=== PATIENT | male | born 1950 | race Caucasian/White ===

== ENCOUNTER 2017-12-07 21:07 | Inpatient (IN) | payer MEDICARE, BC ==
[2017-12-07 21:39] LABS: Hemoglobin 15.4 g/dL (14.0-18.0); Mean Corpuscular HGB CONC 34.9 g/dL (32.0-36.0); Mean Corpuscular Hemoglobin 33.6 pg (27.0-31.0); Mean Corpuscular Volume 96.1 fl (80.0-94.0); RBC Distribution Width 13.2 % (11.5-14.5); Red Blood Cell (RBC) Count 4.59 mill/uL (4.70-6.10); White Blood Cell (WBC) Count 10.2 thou/uL (4.8-10.8)
[2017-12-07 21:54] LABS: Band 13 % (5-11); Lymphocytes 5 % (21-51); MDiff Complete? YES; Mean Platelet Volume 9.6 fL (7.4-10.4); Monocytes 1 % (0-10); Neutrophil 80 % (42-75); PLT Morphology Comment Appears Decreased; Platelet Count 87 thou/uL (130-400); RBC Morphology Normal; Reactive Lymphocytes 1 % (0-10); Vacuoles SLIGHT
[2017-12-07] MEDS ORDERED: MEROPENEM 1 GM/50 ML 1 GM in Premix Bag 1 BAG IVPB SCH (22:00)
[2017-12-07 22:13] LABS: ALT (SGPT) 72 U/L (8-55); AST (SGOT) 62 U/L (5-34); Albumin 3.6 g/dL (3.4-4.8); Alkaline Phosphatase 279 U/L (40-150); Anion Gap 15 mmol/L (10-20); BUN (Urea Nitrogen) 25 mg/dL (8.4-25.7); Bilirubin, Total 1.4 mg/dL (0.2-1.2); Calc. Creatinine Clearance 0 mL/min (70-130); Calcium 9.2 mg/dL (7.8-10.44); Carbon Dioxide 21 mmol/L (23-31); Chloride 100 mmol/L (98-107); Estimated GFR-MDRD 49; Globulin 2.9 g/dL (2.4-3.5); Glucose 108 mg/dL (80-115); Potassium 3.1 mmol/L (3.5-5.1); Protein, Total 6.5 g/dL (5.8-8.1); Sodium 133 mmol/L (136-145)
[2017-12-08] MEDS ORDERED: Ondansetron HCl/PF 4 MG/2 ML Vial IVP PRN ×2 (00:36→06:46)
[2017-12-08] MEDS ORDERED: Acetaminophen 325 MG TAB PO PRN ×2 (00:36→06:46)
[2017-12-08] MEDS ORDERED: Ondansetron ODT 4 MG TAB SL PRN (00:36)
[2017-12-08] MEDS ORDERED: Sodium Chloride 0.9% 1,000 ML IV SCH (00:36)
[2017-12-08 01:22] LABS: Lactic Acid 1.6 mmol/L (0.5-2.2)
[2017-12-08 02:00] VITALS: BMI 34.3
[2017-12-08] MEDS: Sodium Chloride 0.9% 1,000 ML IV SCH ×2 (02:32→15:26)
[2017-12-08] MEDS ORDERED: Ondansetron ODT 4 MG TAB PO PRN (06:46)
[2017-12-08] MEDS ORDERED: Calcium Carbonate 500 MG ChewTAB PO PRN (06:46)
[2017-12-08] MEDS ORDERED: HYDROcodone/Acetaminophen 10/325 mg Tablet PO PRN (06:50)
[2017-12-08] MEDS ORDERED: ALPRAZolam 0.25 MG TAB PO PRN (06:52)
[2017-12-08] MEDS ORDERED: [UNRECOGNIZED DRUG - REMARK] IVPB PRN (06:54)
--- NOTE | 2017-12-08 07:01 | HP ---
PRIMARY CARE PHYSICIAN: Shante Sams M.D. CHIEF COMPLAINT: Fever with abdominal discomfort of one week duration. HISTORY OF PRESENT ILLNESS: The patient is a 67-year-old male with liver abscess earlier this year, treated with IV antibiotics, presented to the emergency room with fever, chills as well as abdominal discomfort. The patient had cholecystectomy 2 to 3 years ago that was complicated with bile duct injury. He was transferred to [facility] for bile duct repair. In August of this year, he was admitted at [facility] with liver abscess. He completed 4 weeks of IV antibiotics and was p laced on oral antibiotics. Over the last 2 months, he is doing well without any antibiotics. He is unable to provide the names of the antibiotic which he was on. Over the last 6-7 days, the patient h as on and off fever along with chills. His temperature has been running intermittently around 102. He was seen at Dr. Narvaez' office yesterday. A CT scan of the abdomen was done that showed liver absc ess. Dr. Narvaez recommended starting oral antibiotics. He was on his way from pharmacy to his home w hen he developed fever of 104 degrees along with fever and chills, he then presented to the emergency room. In the emergency room, initial vital signs showed temperature 100.2, respirations 25, pulse of 101, b lood pressure of 105/64 with O2 saturation 95% on room air. He received meropenem with IV fluids per Infectious Disease recommendation. Blood cultures and urine cultures were done. PAST MEDICAL HISTORY: 1. Liver abscess in August of this year. He was admitted at [facility]. PICC line was placed. 2. Paroxysmal atrial fibrillation. 3. Hyperlipidemia. 4. Hypertension 5. Gastroesophageal reflux disease. 6. Anxiety. PAST SURGICAL HISTORY: 1. Cholecystectomy with complications as discussed above. 2. Bilateral knee surgery. ALLERGIES: The patient is allergic to SULFA. CURRENT HOME MEDICATIONS: Allopurinol 300 mg daily, Xanax 1 mg at bedtime, amiodarone 200 mg daily, Augmentin 1 tablet b.i.d., atenolol 50 mg daily, Lipitor 40 mg at bedtime, ciprofloxacin 500 mg b.i.d ., [place] as needed, meloxicam 15 mg daily, omeprazole 40 mg daily, potassium gluconate 550 mg daily, valsartan and hydrochlorothiazide 320/25 daily. SOCIAL HISTORY: The patient currently lives at home with his family. He currently works in [employer]. He continues to smoke on and off. No drug use. Denies any alcohol abuse. FAMILY HISTORY: Negative for premature coronary artery disease. REVIEW OF SYSTEMS: The following complete review of systems was negative, unless otherwise mentioned in the HPI or below: Constitutional: Weight loss or gain, ability to conduct usual activities. Sk in: Rash, itching. Eyes: Double vision, pain. ENT/Mouth: Nose bleeding, neck stiffness, pain, ten derness. Cardiovascular: Palpitations, dyspnea on exertion, orthopnea. Respiratory: Shortness of breath, wheezing, cough, hemoptysis, fever or night sweats. Gastrointestinal: Poor appetite, abdomi nal pain, heartburn, nausea, vomiting, constipation, or diarrhea. Genitourinary: Urgency, frequency , dysuria, nocturia. Musculoskeletal: Pain, swelling. Neurologic/Psychiatric: Anxiety, depression . Allergy/Immunologic: Skin rash, bleeding tendency. PHYSICAL EXAMINATION: VITAL SIGNS: As discussed above. GENERAL: A 67-year-old male in no apparent distress. Denies any new complaints. HEENT: Head: Atraumatic, normocephalic. Sclerae are anicteric. Moist mucous membranes. No oral l esion. NECK: Supple, no JVD appreciated. No carotid bruit. LUNGS: Clear to auscultation bilaterally. HEART: S1, S2 present. Regular rate and rhythm. No murmur, rubs, or gallops appreciated. ABDOMEN: Soft, mild tenderness over the right upper quadrant without any rebound or guarding. No co stovertebral angle tenderness. EXTREMITIES: No edema or calf tenderness. NEUROLOGIC: Grossly nonfocal, moves all 4 extremities. PSYCHIATRY: Alert, awake, oriented x3. LYMPH NODES: No palpable lymph nodes in the neck. SKIN: Warm and dry. PERIPHERAL VASCULAR: Radial pulses palpable bilaterally. MUSCULOSKELETAL: No joint swelling or tenderness. LABORATORY DATA AND X-RAY FINDINGS: CBC showed WBC 10.2 with 13% bandemia, neutrophils of 80% with p latelet count 87. Hemoglobin was 15.4. Chemistries showed sodium 133, potassium 3.1, chloride 100, bicarb 21, BUN 25, creatinine 1.43. Lactic acid 2.3, total bilirubin 1.4 with alkaline phosphatase 2 79, AST 62, ALT 72. CT scan of the abdomen and pelvis by my review as discussed above. EKG by my re view showed sinus rhythm with first degree AV block. IMPRESSION: 1. Sepsis with acute organ dysfunction secondary to liver abscess. 2. Paroxysmal atrial fibrillation in sinus rhythm. 3. Obesity with a BMI 34.4. 4. Hypertension. 5. Ongoing tobacco abuse. 6. Hyperlipidemia 7. Anxiety. 8. Gastroesophageal reflux disease. 9. Electrolyte abnormalities. The patient has hyponatremia and hypokalemia. 10. Abnormal liver function tests, probably secondary to liver abscess. PLAN: The patient will be monitored on the medical floor. Infectious Disease will be consulted. We will continue meropenem per Infectious Disease recommendation. We will resume home medications. Re place potassium. We will recheck lactic acid. Vital signs q.4 hourly. Plan of care was discussed with the patient in detail, he stated understanding.
[2017-12-08] MEDS: NS 0.9% w/ 20 MEQ KCL 1,000 ML/1,000 ML BAG IV SCH ×3 (09:59→17:57)
[2017-12-08] MEDS: Famotidine 20 MG TAB PO SCH (10:00)
[2017-12-08] MEDS: Amiodarone 200 MG TAB PO SCH (10:00)
[2017-12-08] MEDS ORDERED: Meropenem 1 GM in Sodium Chloride 0.9% 100 ML IVPB SCH (14:00)
[2017-12-08] MEDS: MEROPENEM 1 GM/50 ML 1 GM in Premix Bag 1 BAG IVPB SCH ×2 (14:45→22:25)
[2017-12-09] MEDS: NS 0.9% w/ 20 MEQ KCL 1,000 ML/1,000 ML BAG IV SCH ×4 (01:32→23:28)
[2017-12-09] MEDS ORDERED: ALPRAZolam 1 MG TAB PO SCH (02:00)
[2017-12-09 04:47] LABS: #Eosinphils 0.5 thou/uL (0.0-0.7); #Lymphocytes 2.4 thou/uL (1.20-3.40); #Monocytes 1.5 thou/uL (0.11-0.59); #Neutrophils 8.2 thou/uL (1.40-6.50); %Basophils 0.2 % (0.0-1.0); %Eosinophils 4.2 % (0.0-10.0); %Lymphocytes 18.6 % (21.0-51.0); %Monocytes 11.8 % (0.0-10.0); %Neutrophils 65.1 % (42.0-75.0); Hemoglobin 13.4 g/dL (14.0-18.0); Mean Corpuscular HGB CONC 34.5 g/dL (32.0-36.0); Mean Corpuscular Hemoglobin 33.9 pg (27.0-31.0); Mean Corpuscular Volume 98.3 fl (80.0-94.0); Mean Platelet Volume 9.4 fL (7.4-10.4); Platelet Count 103 thou/uL (130-400); RBC Distribution Width 13.1 % (11.5-14.5); Red Blood Cell (RBC) Count 3.96 mill/uL (4.70-6.10); White Blood Cell (WBC) Count 12.6 thou/uL (4.8-10.8)
[2017-12-09 05:10] LABS: ALT (SGPT) 47 U/L (8-55); AST (SGOT) 39 U/L (5-34); Albumin 2.9 g/dL (3.4-4.8); Alkaline Phosphatase 149 U/L (40-150); Anion Gap 10 mmol/L (10-20); BUN (Urea Nitrogen) 16 mg/dL (8.4-25.7); Bilirubin, Total 0.5 mg/dL (0.2-1.2); Calc. Creatinine Clearance 132 mL/min (70-130); Calcium 8.4 mg/dL (7.8-10.44); Carbon Dioxide 24 mmol/L (23-31); Chloride 109 mmol/L (98-107); Estimated GFR-MDRD 75; Globulin 2.5 g/dL (2.4-3.5); Glucose 109 mg/dL (80-115); Lipase 22 U/L (8-78); Potassium 3.7 mmol/L (3.5-5.1); Protein, Total 5.4 g/dL (5.8-8.1); Sodium 139 mmol/L (136-145)
[2017-12-09] MEDS: MEROPENEM 1 GM/50 ML 1 GM in Premix Bag 1 BAG IVPB SCH ×3 (05:57→21:35)
[2017-12-09] MEDS: Ursodiol 300 MG CAP PO SCH ×3 (09:15→16:29)
[2017-12-09] MEDS: Famotidine 20 MG TAB PO SCH ×2 (09:15→21:35)
[2017-12-09] MEDS: Amiodarone 200 MG TAB PO SCH (09:15)
--- NOTE | 2017-12-09 12:59 | PDOC.PN ---
- Subjective Encounter Start Date: 12/09/17 Encounter Start Time: 08:00 Pt seen for followup re: sepsis. Denies chest pain, shortness of breath, fevers or chills. c/o diarrhea. - Objective Resuscitation Status: Resuscitation Status FULL:Full Resuscitation MAR Reviewed: Yes Vital Signs & Weight: Vital Signs (12 hours) Temp Pulse Resp BP BP Pulse Ox 12/09/17 12:00 132/64 12/09/17 11:54 96.7 F L 60 16 93 L 12/09/17 08:00 97.1 F L 70 16 126/74 95 12/09/17 06:14 124/70 12/09/17 04:00 97.4 F L 61 12 94 L Weight Weight 284 lb 14.4 oz I&O: 12/08/17 12/09/17 12/10/17 06:59 06:59 06:59 Intake Total 2388 Balance 2388 Result Diagrams: 12/09/17 04:10 12/09/17 04:10 EKG Reviewed by me: Yes (Tele: NSR) Phys Exam - Physical Examination Obese HEENT: moist MMs, sclera anicteric, oral pharynx no lesions, 2+ tonsils Neck: no nodes, no JVD, supple, full ROM Respiratory: no wheezing, no rales, no rhonchi, clear to auscultation bilateral Cardiovascular: RRR, no rub S1, S2 Gastrointestinal: soft, non-tender, positive bowel sounds distention Neurological: moves all 4 limbs Psychiatric: normal affect, A&O x 3 Dx/Plan (1) Sepsis Code(s): A41.9 - SEPSIS, UNSPECIFIED ORGANISM Status: Acute Comment: continue IV meropenem, follow cultures (2) Diarrhea Code(s): R19.7 - DIARRHEA, UNSPECIFIED Status: Acute Comment: await stool c. diff, cultures (3) Abnormal LFTs Code(s): R94.5 - ABNORMAL RESULTS OF LIVER FUNCTION STUDIES Status: Acute Comment: Improving, likely due to sepsis (4) HTN (hypertension) Code(s): I10 - ESSENTIAL (PRIMARY) HYPERTENSION Status: Chronic Comment: Controlled and at goal (5) Paroxysmal A-fib Code(s): I48.0 - PAROXYSMAL ATRIAL FIBRILLATION Status: Chronic Comment: pt is in sinus rhythm - Plan * . Review of Systems - Review of Systems Constitutional: negative: fever, chills, sweats, weakness, malaise Respiratory: negative: Cough, Shortness of Breath, SOB with Excertion, Pleuritic Pain, Wheezing Cardiovascular: negative: chest pain, palpitations, orthopnea, paroxysmal nocturnal dyspnea, edema, light headedness Gastrointestinal: Diarrhea. negative: Nausea, Vomiting, Abdominal Pain, Constipation, Melena, Hematochezia Genitourinary: negative: Dysuria, Frequency, Incontinence, Hematuria, Retention - Medications/Allergies Allergies/Adverse Reactions: Allergies Allergy/AdvReac Type Severity Reaction Status Date / Time Sulfa (Sulfonamide Allergy Verified 12/08/17 01:23 Antibiotics) Medications: Current Medications Acetaminophen (Tylenol) 650 mg PO Q8H PRN PRN Reason: Headache/Fever or Pain Hydrocodone Bitart/Acetaminophen ([place] 10/325) 1 tab PO QID PRN PRN Reason: Pain Last Admin: 12/08/17 22:46 Dose: 1 tab Acidophilus (Floranex) 1 tab PO DAILY [facility] Alprazolam (Xanax) 0.25 mg PO QIDPRN PRN PRN Reason: Anxiety Last Admin: 12/08/17 22:46 Dose: 0.25 mg Amiodarone HCl (Cordarone) 200 mg PO DAILY [facility] Last Admin: 12/09/17 09:15 Dose: 200 mg Calcium Carbonate (Tums) 1,000 mg PO Q4H PRN PRN Reason: Heartburn or Indigestion Famotidine (Pepcid) 20 mg PO BID [facility] Meropenem 1 gm/ Device 50 mls @ 100 mls/hr IVPB Q8HR [facility] Last Admin: 12/09/17 05:57 Dose: 50 mls Potassium Chloride/Sodium Chloride (Ns 0.9% W/ 20 Meq Kcl) 1,000 ml in 1,000 mls @ 75 mls/hr IV .[id number] [facility] Last Admin: 12/09/17 12:52 Dose: Not Given Miscellaneous Medication (Pharmacy To Dose) 1 each IVPB DAILYPRN PRN PRN Reason: LABS Ursodiol (Actigal) 300 mg PO TID-WM [facility] Last Admin: 12/09/17 11:55 Dose: 300 mg
[2017-12-09] MEDS: Lactinex Tablet PO SCH (13:32)
--- NOTE | 2017-12-09 14:45 | CON ---
DATE OF CONSULTATION: 12/08/2017 REASON FOR CONSULT: Hepatic abscess. HISTORY OF PRESENT ILLNESS: Mr. Grey reports he had a liver infection in August for choosing the antibiotics for about a month under care of Dr. Narvaez. He may have actually seen one of the people in our group, but I have not been seeing his records, will have to locate those. In any event, he cut the antibiotic treatment short as [place] 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 He did well up until just recently, began to have some fever. Apparently went to go see Dr. Narvaez who began to have on and off fever, chills, and some vague upper abdominal pain and documented temperature of 102 at home. He was getting started on oral antibiotics; however, on the way home, he developed 104 fever, chills, and then came to the emergency room. He was admitted with a pulse of 100, blood pressure 105/64, and temperature 100.2. Start meropenem and IV fluids, that was pancultured. His CAT scan performed on 12/07/2017 as an outpatient. He said half a density in the gallbladder fossa, which was felt to be a contracted gallbladder by the radiologist. He also had nonspecific linear hyperdensity, some hypodensities and periportal edema in the right hepatic lobe. Radiologist told there was no enhancement suggesting intrahepatic abscess. There were some small hypodensities in the kidneys, which felt to be cysts. I have talked with the radiologist have been compared the films to his x-rays at the [facility] in August and once that was done, Radiology can includes that he had hepaticojejunostomy as suspected based on his history of bile duct injury in 2014 during cholecystectomy. He also has some mild intrahepatic ductal dilatation in the right lobe as well as lesion in abdomen or liver. A slight increased attenuation of the parenchymal area of the right lobe. He has been admitted and placed on antibiotics, he is feeling better now. His temperature is 97.4. Dr. Narvaez saw him today with Dr. Ridley hepatic surgeon at [facility] in [place]. Thats who repaired his common duct injury in 2014. They are planning on seeing him back there after discharge to check for blockage restricting flow of bile. He presently is without complaints. PAST MEDICAL HISTORY: Includes history of diverticulitis in the past. At one time, there was some consideration maybe going to get part of his colon removed , but that never took place. Also, he was evaluated in our office in the past for abnormal liver enzymes back in 2014. At that time, negative hepatitis A, B , and C serologies, negative EBV serologies. Negative evaluation for primary biliary cholangitis for autoimmune hepatitis. Again, after reviewing those records to see what actually went on that time. Also, history of paroxysmal atrial fibrillation, hyperlipidemia, hypertension, reflux, anxiety. PAST SURGICAL HISTORY: Cholecystectomy with bile duct injury and repair by imaging studies and his description sounds like hepaticojejunostomy. He has had bilateral knee surgeries, has had previous colonoscopies and does not recall the last one was. He had an ERCP for choledocholithiasis in the past, probably in 2014. ALLERGIES: SULFA DRUGS. CURRENT MEDICATIONS: At home allopurinol, Xanax, amiodarone, Augmentin, atenolol, Lipitor, Cipro, [place] p.r.n., meloxicam, omeprazole, potassium, valsartan, hydrochlorothiazide. 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 He continues to smoke on and off, does not use drugs. Denies heavy alcohol use. REVIEW OF SYSTEMS: Negative for rashes, myalgias or arthralgias. Negative for pruritus. Negative for jaundice or icterus or dark urine. Negative for weight loss. PRESENT MEDICATIONS HERE IN THE HOSPITAL: Tylenol p.r.n., Xanax p.r.n., Coreg, amiodarone, Pepcid, Pequea, meropenem, IV fluid, normal saline 125 an hour. PHYSICAL EXAMINATION: VITAL SIGNS: Temperature 97.4, pulse is 61, blood pressure 122/48. GENERAL: He is resting comfortably in bed. He is nonicteric. HEENT: Oropharynx without lesions. NECK: Supple without adenopathy as well as scar in the upper abdomen. He has no tenderness, rebound, or guarding or Ramirez sign. No palpable hepatosplenomegaly. EXTREMITIES: No clubbing, cyanosis, or edema. LABORATORY DATA AND X-RAY FINDINGS: White count was 10.2, hemoglobin 15.5, MCV 96, was 101 yesterday. Platelets are low 87 today, it was 283 yesterday, and neutrophils are 80, bands 13%. INR 0.9. Liver function tests: Sodium 133, potassium 3.1, creatinine 1.3, BUN 25. Lactic acid was 2.3, bilirubin is 1.4. AST and ALT are 62 and 72, alkaline phosphatase 279. CT scan films reviewed, it seems to get hepaticojejunostomy, some suture material in the right upper quadrant going along with this, a little bit of fatty liver as well. Liver does not appear nodular. ASSESSMENT: 1. Ascending cholangitis. It is likely diagnosis the situation secondary to some restriction of bile flow of hepaticojejunostomy. The fluid collection ____ _ probably a loop of bowel was pulled up in this area. At this time, blood and urine cultures are negative. He is stable and not septic. 2. Low platelets. These were normal on admission, this may be related to the antibiotic and then precipitous drop of this, continues and need to be changed. Levaquin and Flagyl would be reasonable. 3. Mildly elevated MCV ? some underlying liver disease. He has normal hemoglobin and B12 deficiency is unlikely. RECOMMENDATIONS: 1. Continue antibiotics. Monitor platelets. If they continued to drop consider change in antibiotic therapy. 2. Monitor liver function test. 3. Await blood cultures. 4. We will discuss with Dr. Narvaez tomorrow, but sounds like he may need to have evaluation in [place] and with Interventional Radiology or Interventional Gastroenterology will have some type of modification of his hepaticojejunostomy , as it seems probably has some stricturing there leading to recurrent obstruction and infection. We will place him on some Ursodiol at this time, which may help this. YOBANY
--- NOTE | 2017-12-09 15:03 | CON ---
DATE OF CONSULTATION: 12/08/2017 REASONS: Fever, abnormal liver function tests, and abnormal CT of abdomen. HISTORY OF PRESENT ILLNESS: A 67-year-old with history of gout, atrial fibrillation, hypertension, p rior cholecystectomy which was complicated by bile duct injury and required transfer to [place] for m anagement in 2014. In 2016, patient had a meniscus repair with arthroscopy and for the past 4 years, he has been working in [facility] from time to time. Usually 3 months stents in [employer] [facility] for his job in a [employer] company. In 06/2017, patient had upper respiratory tract illness, treated with a 10-day course of oral antimicrobial therapy. Then in 08/2017, he presented with a 1-week history of fever, which has started while he was in [facility] associated with malaise, myalgias, sweats, and anorexia. The labo ratory data from [facility] admission in August showed a negative influenza casa t, creatinine of 1.6, abnormal liver function tests with elevation in AST, ALT, alkaline phosphatase, and bilirubin. White cell count is elevated at 13.6, platelets were decreased at 97,000 with 13% ba nds. The patient had a blood culture sets which were negative. A CT of abdomen and pelvis done at [facility] in August, demonstrated a small nonspecific hepatic hypodensities. Our impression then was that patient most likely had ascending cholangitis with a small liver abscess formation. The main co ncern is with anaerobic, pathogens, Streptococci, and Gram-negative rods. He was switched to meropen em, which was given via PICC line. The plan was to treat him for at least 6 weeks, but the patient h ad to go to [facility], so the treatment was interrupted early at around 3 weeks and he was switched to o ral Augmentin. By that time, he was transitioned to oral antimicrobials. His symptoms have resolved . He was feeling much better. His labs had resolved and C-reactive protein return to normal. Veronica hollingsworth went to [facility] and they remained on Augmentin for I believe another month and then 1 month after c ompletion of Augmentin, he developed recrudescence of fever up to 102 to 103. This was 3 days before he came back to [facility] on arrival, he called us and we saw him in the clinic. He had labs blackmon bmitted including blood cultures and comprehensive metabolic panel, urinalysis, and CBC. One dose of Invanz was given intravenously in the office. The patient went home, his intention was to go on vac ation, but later in the afternoon, he is feeling poorly, had recrudescence of fever up to 104. He de cided to cancel his vacation and was admitted to the hospital. The patient was started on meropenem. He has been afebrile since admission. The labs and exam are discussed below. Currently, Mr. Cordelia miller is lying in bed, is awake, oriented. Denies headaches, visual symptoms, sore throat, odynophag ia, dysphagia, no back pain, no dyspnea, cough or sputum production, no chest pain, no abdominal pain or diarrhea. No genitourinary symptoms, no joint symptoms. No neurological symptoms. MEDICAL HISTORY: Atrial fibrillation with cardioversion, hypertension, hyperlipidemia, GERD, diverti culosis, cholecystitis with bile duct, injury during surgery in 2014, which required transfer to [facility] in [place] for reanastomosis of the bile duct to the jejunum in 2014, has had knee operations. SOCIAL HISTORY: , [place] working in [employer] for the [employer] [place] t 4 years intermittently. Current smoker, drinks intermittently. FAMILY HISTORY: Breast cancer. ALLERGY HISTORY: SULFA drugs with rash. CURRENT MEDICATIONS: Include meropenem, hydrocodone, alprazolam, amiodarone, calcium carbonate, famo tidine. PHYSICAL EXAMINATION: VITAL SIGNS: T-max here in the hospital at 98.3, blood pressure 112/58, pulse 61, respirations 18, O 2 sat 94% room air. GENERAL: Appears no distress. SKIN: Facial skin, little bit flushed. HEENT: No lymphadenopathy. Ocular movements conjugate. Oral cavity normal. NECK: Supple, no jugular vein distention. LUNGS: Clear to auscultation and percussion. HEART: S1, S2, regular rate. No S3, S4. ABDOMEN: Soft, not distended or tender. No ascites. No bladder distention. EXTREMITIES: No joint inflammatory activity. Moves all extremities equally. NEUROLOGIC: Cognitive function appears to be intact. LABORATORY AND DIAGNOSTIC DATA: White cell count 10.2, hemoglobin 15, platelets 87,000 with 80% neut rophils, 13% bands, 5% lymphocytes. Chemistry with a creatinine of 1.43. Baseline creatinine of 0.9 7 in 2015. AST 62, bilirubin 1.4, ALT 72, alkaline phosphatase 279, albumin 3.6. The patient has cruz d previous serology in 2015, which was negative for hepatitis B and C. The repeat imaging study done yesterday, was abdomen and pelvis CT with contrast. This showed subcentimeter hypodensities in righ t hepatic lobe, hypodensity in the gallbladder fossa, and the largest hypodensity is 1 cm with a maxi mum dimension. There was evidence of periportal edema in the right hepatic lobe. There is mild prom inence urinary bladder, probably due to inadequate distention. ASSESSMENT: Prior biliary tract surgery following accidental laceration of the biliary duct, doing c holecystectomy in 2014 in [facility]. This required transfer the patient to [facility] for repair with consisted of anastomosis of the bile duct to a different segment of the small bow el apparently. The patient now presents with recurring episodes of fever with abnormal liver functio n tests and those changes noted on CT of the abdomen, mostly concentrated in the right hepatic lobe w ith possible liver abscesses. Thus far, blood cultures are negative and still waiting on the final r esults. He seems to be responding to antimicrobial therapy already. In my working diagnosis, still cholangitis with a small liver abscess formation, recurrence, probably due to the incomplete nature o f this original treatment due to his work requirements. We will continue meropenem, PICC line placem ent, we will discuss with his surgeon in [place], Dr. Fiore, which performed the initial surgery and this time, the patient has to wait until the end of this month. At that time, we will have to i nterrupt his IV treatment and again and transition this time to oral Augmentin plus ciprofloxacin, pl an to continue on this double-drug regimen for at least 2 months and follow him once he comes back [facility], which will be sometime in January. I have requested consultation Gastroenterology to get h er opinion and follow up the discussions with his original surgeon in [place].
--- NOTE | 2017-12-09 15:21 | PRG ---
DATE OF SERVICE: 12/09/2017 SUBJECTIVE: The patient notes he has no pain. He has had no fever. He did have some loose stool wh en came in. He tells me that he was told he may have C. diff and he has had no bowel movements today . I talked with the nurses. He does add to history obtained yesterday that he took some antibiotics following . He states h e just took 1 day for right upper quadrant pain. Apparently, got that medication in a pharmacy and t hen he came back in to see with Dr. Narvaez because the pain and fever recurring. MEDICATIONS: Tylenol, Flomax, Xanax, amiodarone, calcium, Pepcid, p.r.n. [place], meropenem, and ursod iol. OBJECTIVE: VITAL SIGNS: Temperature 96, pulse 60, blood pressure 138/64. ABDOMEN: Soft and nontender. There is no rebound or guarding. SKIN: Skin is warm and dry. LABORATORY DATA: White count 12.6, hemoglobin 13.4, platelet count 103. Microbiology: Stool was se nt yesterday evening, antigen positive for C. diff toxin pending. Stool negative for Campylobacter, Shiga toxins. ASSESSMENT: 1. Ascending cholangitis. I talked to Dr. Narvaez, who talked to Dr. want to see him back in [facility] next week to evaluate his hepaticojejunostomy anastomosis. I think tomorrow if his blood cult ure is negative, he can be switched to oral antibiotics. His liver function tests are improving with a bilirubin now 0.5, AST and ALT have dropped to 39 and 42, alkaline phosphatase has dropped from 27 9-149. 2. The patient apparently had diarrhea last night and stool positive for C. diff, antigen toxin is p ending. He denies having this in the past. Denies any oral antibiotics on this admission and an ant ibiotic he took for one day and quit. PLAN: 1. We will start probiotic. 2. If C. diff toxin is positive, he needed to be treated with vancomycin 125 p.o. q.i.d. for the dur ation of the antibiotics for the cholangitis and then for additional 10 days, he should remain on a p robiotic as well for 6 weeks.
[2017-12-10] MEDS: MEROPENEM 1 GM/50 ML 1 GM in Premix Bag 1 BAG IVPB SCH (05:36)
[2017-12-10] MEDS ORDERED: Meloxicam 15 MG TAB PO SCH (09:00)
[2017-12-10] MEDS ORDERED: Allopurinol 300 MG TAB PO SCH (09:00)
[2017-12-10] MEDS ORDERED: Amoxicillin/Potassium Clav 875 MG TAB PO SCH (09:00)
[2017-12-10] MEDS ORDERED: Valsartan 80 MG TAB PO SCH (09:00)
[2017-12-10] MEDS ORDERED: Atenolol 50 MG TAB PO SCH (09:00)
[2017-12-10] MEDS ORDERED: Ciprofloxacin 500 MG TAB PO SCH (09:00)
[2017-12-10] MEDS ORDERED: POTASSIUM GLUCONATE 550 MG PO SCH ×2 (09:00)
[2017-12-10] MEDS ORDERED: Non-Formulary Item 1 EACH (Valsartan/Hydrochlorothiazide [Valsartan-Hctz 320-25 Mg Tab] 1 PO SCH (09:00)
[2017-12-10] MEDS ORDERED: Non-Formulary Item 1 EACH (Omeprazole [Omeprazole] 40 MG) PO SCH (09:00)
[2017-12-10] MEDS ORDERED: Hydrochlorothiazide 25 MG TAB PO SCH (09:00)
[2017-12-10] MEDS: Ursodiol 300 MG CAP PO SCH ×3 (09:32→16:42)
[2017-12-10] MEDS: Amiodarone 200 MG TAB PO SCH (09:33)
[2017-12-10] MEDS: Famotidine 20 MG TAB PO SCH (09:34)
[2017-12-10] MEDS: Lactinex Tablet PO SCH (09:34)
[2017-12-10] MEDS: Vancomycin HCl 25 MG/ML Oral PO SCH ×3 (09:36→16:42)
--- NOTE | 2017-12-10 12:44 | PDOC.PN ---
- Subjective Encounter Start Date: 12/10/17 Encounter Start Time: 08:40 Pt seen for followup re: c. diff diarrhea. Denies chest pain or shortness of breath, has diarrhea. No fevers. - Objective Resuscitation Status: Resuscitation Status FULL:Full Resuscitation MAR Reviewed: Yes Vital Signs & Weight: Vital Signs (12 hours) Temp Pulse Resp BP BP Pulse Ox 12/10/17 12:23 98.3 F 16 120/80 95 12/10/17 09:33 56 L 12/10/17 08:15 98 F 56 L 16 140/65 95 12/10/17 08:00 98.1 F 56 L 16 12/10/17 04:46 95 12/10/17 04:00 98.2 F 65 17 148/72 H 95 Weight Weight 284 lb 14.4 oz I&O: 12/09/17 12/10/17 12/11/17 06:59 06:59 06:59 Intake Total 2388 1515 360 Output Total 400 Balance 2388 1515 -40 Result Diagrams: 12/09/17 04:10 12/09/17 04:10 EKG Reviewed by me: Yes (Tele: NSR, episodes of 2nd degree type I and II block) Phys Exam - Physical Examination Obese HEENT: moist MMs Neck: supple Respiratory: clear to auscultation bilateral Cardiovascular: RRR Gastrointestinal: soft Neurological: moves all 4 limbs Psychiatric: normal affect Dx/Plan (1) Clostridium difficile diarrhea Code(s): A04.72 - ENTEROCOLITIS D/T CLOSTRIDIUM DIFFICILE, NOT SPCF RECUR Status: Acute Comment: start oral vancomycin (2) AV block, 2nd degree Code(s): I44.1 - ATRIOVENTRICULAR BLOCK, SECOND DEGREE Status: Acute Comment : Consult cardiology for opinion, continue home meds. Hold beta brooke (3) Abnormal LFTs Code(s): R94.5 - ABNORMAL RESULTS OF LIVER FUNCTION STUDIES Status: Acute Comment: Improving (4) HTN (hypertension) Code(s): I10 - ESSENTIAL (PRIMARY) HYPERTENSION Status: Chronic Comment: Controlled and at goal (5) Paroxysmal A-fib Code(s): I48.0 - PAROXYSMAL ATRIAL FIBRILLATION Status: Chronic Comment: pt is in sinus rhythm (6) Sepsis Code(s): A41.9 - SEPSIS, UNSPECIFIED ORGANISM Status: Resolved - Plan Discontinue meropenem, start Augmentin and ciprofloxacin. Review of Systems - Review of Systems Constitutional: negative: fever, chills, sweats, weakness, malaise Cardiovascular: negative: chest pain, palpitations, orthopnea, paroxysmal nocturnal dyspnea, edema, light headedness Gastrointestinal: Diarrhea. negative: Nausea, Vomiting, Abdominal Pain, Constipation, Melena, Hematochezia - Medications/Allergies Allergies/Adverse Reactions: Allergies Allergy/AdvReac Type Severity Reaction Status Date / Time Sulfa (Sulfonamide Allergy Verified 12/08/17 01:23 Antibiotics) Medications: Current Medications Acetaminophen (Tylenol) 650 mg PO Q8H PRN PRN Reason: Headache/Fever or Pain Hydrocodone Bitart/Acetaminophen ([place] 10325) 1 tab PO QID PRN PRN Reason: Pain Last Admin: 12/08/17 22:46 Dose: 1 tab Acidophilus (Floranex) 1 tab PO DAILY [facility] Last Admin: 12/10/17 09:34 Dose: 1 tab Allopurinol (Zyloprim) 300 mg PO DAILY [facility] Last Admin: 12/10/17 09:32 Dose: 300 mg Alprazolam (Xanax) 0.25 mg PO QIDPRN PRN PRN Reason: Anxiety Last Admin: 12/08/17 22:46 Dose: 0.25 mg Alprazolam (Xanax) 1 mg PO [facility] Amiodarone HCl (Cordarone) 200 mg PO DAILY [facility] Last Admin: 12/10/17 09:33 Dose: 200 mg Amoxicillin/Clavulanate Potassium (Augmentin) 875 mg PO BID [facility] Last Admin: 12/10/17 09:33 Dose: 875 mg Atenolol (Tenormin) 50 mg PO DAILY [facility] Last Admin: 12/10/17 09:33 Dose: 50 mg Atorvastatin Calcium (Lipitor) 40 mg PO HS [facility] Calcium Carbonate (Tums) 1,000 mg PO Q4H PRN PRN Reason: Heartburn or Indigestion Ciprofloxacin (Cipro) 500 mg PO BID [facility] Last Admin: 12/10/17 09:33 Dose: 500 mg Famotidine (Pepcid) 20 mg PO BID [facility] Last Admin: 12/10/17 09:34 Dose: Not Given Hydrochlorothiazide (Hydrochlorothiazide) 25 mg PO DAILY [facility] Last Admin: 12/10/17 09:34 Dose: 25 mg Potassium Chloride/Sodium Chloride (Ns 0.9% W/ 20 Meq Kcl) 1,000 ml in 1,000 mls @ 75 mls/hr IV .[id number] [facility] Last Admin: 12/09/17 23:28 Dose: 1,000 mls Meloxicam (Mobic) 15 mg PO DAILY [facility] Last Admin: 12/10/17 09:35 Dose: 15 mg Miscellaneous Medication (Pharmacy To Dose) 1 each IVPB DAILYPRN PRN PRN Reason: LABS Pantoprazole Sodium (Protonix) 40 mg PO DAILY [facility] Last Admin: 12/10/17 09:35 Dose: Not Given Potassium Gluconate ([Potassium] 550 Mg)) 0 each PO DAILY [facility] Sodium Chloride (Flush - Normal Saline) 10 ml IVF Q12HR [facility] Last Admin: 12/10/17 09:35 Dose: Not Given Sodium Chloride (Flush - Normal Saline) 10 ml IVF PRN PRN PRN Reason: Saline Flush Ursodiol (Actigal) 300 mg PO TID-WM [facility] Last Admin: 12/10/17 12:15 Dose: 300 mg Valsartan (Diovan) 320 mg PO DAILY [facility] Last Admin: 12/10/17 09:36 Dose: 320 mg Vancomycin HCl (First Vancomycin) 125 mg PO QID [facility] Last Admin: 12/10/17 12:15 Dose: 125 mg
--- NOTE | 2017-12-10 14:06 | PRG ---
DATE OF SERVICE: 12/10/2017 SUBJECTIVE: Feeling better, back to normal. No headaches, no abdominal symptoms. No shortness of b reath, no diarrhea. Actually did have some diarrhea earlier, but now has improved. PHYSICAL EXAMINATION: VITAL SIGNS: Normal. LUNGS: Clear. HEART: S1, S2, regular rate. ABDOMEN: Soft, not distended or tender. LABORATORY: White cell count is 12.6 yesterday, hemoglobin 13, platelets 103,000. Sodium 139, creat inine 1.0, AST 39, ALT 47, albumin 2.9. The patient had a C. diff submitted which was positive, both for antigen and toxin. Dr. Potts has evaluated the patient and believes that he probably had anast omoses right at the booker hepatis to bypass the area of bile duct laceration. ASSESSMENT: Enterobiliary anastomosis to bypass area of laceration of the bile duct during cholecys tectomy done in 2014, now with recurrent episodes of cholangitis. DISCUSSION: Dr. Ridley in [place] will perform evaluation of the area of anastomosis to see if ther e is a stricture and dilated if necessary. I will go ahead and discharge the patient on oral Augment in and Cipro plus oral vancomycin, should continue on oral vancomycin while he is on the antimicrobia ls. Following evaluation by Dr. Ridley, I will see him in the office before he goes back to [facility] and then devise a plan for when he is overseas. He most likely will need to continue antimicrobial therapy while there and then upon return then try to discontinue it and see what happens.
--- NOTE | 2017-12-10 16:33 | PRG ---
DATE OF SERVICE: 12/10/2017 SUBJECTIVE: Mr. Grey states his diarrhea has resolved. His abdominal pain resolved. His hear t rate dropped down to 30s last night. He has seen Cardiology today and seems he has second degree A V block. OBJECTIVE: VITAL SIGNS: Temperature is 98, O2 sat 95%, 16 respirations per minute, pulse 56, and blood pressure 120/80. LUNGS: Clear. HEART: Regular rate and rhythm. ABDOMEN: Nontender. SKIN: He has a blister on his upper lip. LABORATORY STUDIES: No labs today. MICROBIOLOGY: was positive as well. ASSESSMENT: 1. Ascending cholangitis, likely related to previous hepaticojejunostomy and some restriction of out flow or sump syndrome, improved on meropenem now on fluoroquinolone, which is reasonable. 2. The patient has C. diff diarrhea. He had [place] antibiotics [place] but only h ad one dose of antibiotics here when he had a fever with Dr. Narvaez for being admitted. I suspect wit h the diarrhea he reports . He is on vancomycin presently and tolerating that. He is on a prob iotic as well. He is also on Augmentin. 3. He got a cold sore in his lip. 4. Bradycardia with second degree AV block, apparently for the last 24 hours. Cardiology is evaluat ing him now. RECOMMENDATIONS: 1. Vancomycin q.i.d. He is going to need be on that for about 10 days long. He is on antibiotics f or the cholangitis. He also needs to be on probiotic. Also, we would agree with using just H2 block ers for ulcer prophylaxis not the Clostridium difficile. I had a long conversation with the patient about cleaning measures at home, risk of recurrence, and possible severe nature of Clostridium diffic ile. Given recommendations for cleaning bedsheets and bathrooms at home, and aggressive handwashing. 2. Ascending cholangitis. We will try to get him on just one antibiotic, either fluoroquinolone or the Augmentin or he needs both. 3. We will continue the ursodiol. 4. When the patient is discharged, he is going to need to see his liver surgeon in [place] to see if there is any manipulation that can make of his hepaticojejunostomy anastomosis to help prevent furth er bouts of cholangitis. 5. I anticipate he would probably go home today, but with the secondary AV heart block, we are await ing for cardiac evaluation.
[2017-12-10] MEDS: NS 0.9% w/ 20 MEQ KCL 1,000 ML/1,000 ML BAG IV SCH (16:42)
[2017-12-10 16:52] VITALS: BP 155/69; TEMP 98.1
[2017-12-10] MEDS ORDERED: Acyclovir 400 mg Tablet PO SCH (21:00)
[2017-12-10] MEDS ORDERED: ALPRAZolam 1 MG TAB PO SCH (21:00)
[2017-12-10] MEDS ORDERED: Atorvastatin Calcium 40 MG TAB PO SCH (21:00)
--- NOTE | 2017-12-10 23:58 | DIS ---
DATE OF ADMISSION: 12/08/2017 DATE OF DISCHARGE: 12/10/2017 PRIMARY CARE PHYSICIAN: Dr. Shante Sams. DISCHARGE DIAGNOSES: 1. Sepsis. 2. Clostridium difficile diarrhea. 3. Second degree AV block. CONSULTATIONS DURING THIS HOSPITALIZATION: Infectious diseases, Dr. Narvaez; gastroenterology, Dr. Cisneros, cardiology, Dr. Rogers. CONDITION OF PATIENT ON THE DAY OF DISCHARGE: Stable. I assessed Mr. Grey on the day of disch arge. Please refer to my daily hospitalist progress note for further information. DISCHARGE MEDICATIONS: His acyclovir was discontinued. His discharge medications include acyclovir 400 mg 3 times a day, allopurinol 300 mg daily, Xanax 1 mg at bedtime, amiodarone 200 mg daily, Augme ntin 875 mg 2 times a day, atorvastatin 40 mg at bedtime, ciprofloxacin 500 mg 2 times a day, [place] p .r.n., meloxicam 15 mg daily, omeprazole 40 mg daily, potassium gluconate 550 mg daily, valsartan/hyd rochlorothiazide 320/25 mg daily, vancomycin 125 mg 4 times a day orally. HOSPITAL COURSE: Mr. Grey is a pleasant 67-year-old gentleman who was admitted to [facility] on 12/08/2017 for sepsis. He also had abnormal liver function tests and cholan gitis was suspected. He was seen by Gastroenterology and Infectious Diseases services. He was initi ally treated with intravenous meropenem, subsequently changed to ciprofloxacin and Augmentin. He is being referred back to Dr. Ridley in [place] for evaluation of the area of anastomosis to see if the re is a stricture and dilated if necessary. Dr. Narvaez will follow up with him as outpatient before h e goes back to [facility] and then devise a plan for when he is overseas. He also had diarrhea around the time of admission. He was found to have Clostridium difficile diarrh ea and has been started on vancomycin. He also had second-degree AV block. He was seen by Cardiology Service and advised to continue amioda sayra, but discontinue atenolol. He is advised to follow up with his own police officer. On 12/09/2017, he had normal sodium, normal potassium, normal creatinine, AST of 39, ALT 47, normal t otal bilirubin, white count 12,600, hemoglobin 13.4, and platelet count 103,000. At the time of this dictation, final urine culture did not show any growth. Preliminary blood culture did not show any growth at 48 hours. He is advised to follow up with Infectious Disease service for final report. Many thanks for allowing me to participate in your patient's care. Please feel free to contact me wi th any questions or concerns. DISCHARGE DESTINATION: Home. TOTAL AMOUNT OF TIME SPENT COORDINATING THIS DISCHARGE: 33 minutes.
--- NOTE | 2017-12-11 10:21 | CON ---
DATE OF CONSULTATION: 12/10/2017 HISTORY OF PRESENT ILLNESS: The patient is a pleasant 67-year-old gentleman with a history of atrial fibrillation who presents for evaluation of a slow heart rate. The patient was admitted with abdominal discomfort. He was monitored on telemetry and found to have a slow heart rate. The patient was diagnosed with atrial fibrillation approximately 10 years ago. He states he underwent abdominal surgery 3-4 years ago. He developed recurrent atrial fibrillation. The patient underwent electrical cardioversion. The patient has been treated by Dr. Person at [facility]. He has been on amiodarone for the past several years. The patient denies having any lightheadedness or dizziness. The patient denies having any syncope. He also denies having any chest discomfort or dyspnea. PAST MEDICAL HISTORY: 1. Atrial fibrillation. 2. Hypertension. 3. Dyslipidemia. 4. GE reflux. 5. History of a liver abscess. PAST SURGICAL HISTORY: Cholecystectomy, knee surgery and bile duct surgery. ALLERGIES: SULFA DRUGS. MEDICATIONS: Atenolol 300 daily, Xanax 1 tablet daily, Augmentin 1 tablet b.i.d., atenolol 50 daily, Lipitor 40 at bedtime, ciprofloxacin 500 b.i.d., [place] p.r.n., valsartan/HCTZ 320/25 daily, Prilosec 40 daily, potassium 550 daily. SOCIAL HISTORY: The patient has a long history of tobacco abuse. He smokes half-pack per day. FAMILY HISTORY: No strong family history of heart disease. REVIEW OF SYSTEMS: Noticeable for abdominal discomfort. Ten-point system otherwise unremarkable. PHYSICAL EXAMINATION: GENERAL: Obese gentleman in no acute distress with a blood pressure of 140/65. NECK: No jugular venous distention, no carotid bruits. LUNGS: Clear to auscultation. HEART: Regular rate and rhythm, normal S1, S2. ABDOMEN: Mildly distended. EXTREMITIES: Show no edema. SKIN: Warm and dry. NEUROLOGIC: Nonfocal. VASCULAR: Radial pulses are 2+. LABORATORY RESULTS AND IMAGING: White blood cell count 12.6, hemoglobin 13.4, hematocrit 38.9, platelets 103. Sodium is 129, potassium 3.7, chloride 109, bicarbonate 24, BUN 16, creatinine is 1.0, glucose is 109. His EKG reveals him to have normal sinus rhythm with a first-degree AV block. His vehicle monitor technician revealed second-degree AV block, [place] type 1. IMPRESSION: 1. Second-degree atrioventricular heart block, [place] type 1, asymptomatic. 2. History of atrial fibrillation. 3. Hypertension. 4. Dyslipidemia. 5. Obesity. This gentleman who presented with abdominal discomfort is in second-degree [place] type 1. There are dropped beats noted on his telemetry monitoring that are most likely type 1 since he has a narrow QRS complex. the patient is asymptomatic. At this time, the patient should avoid taking atenolol. He will remain on amiodarone and follow up with his primary kraft digester operator. YOBANY
== END 2017-12-10 17:27 | disposition home or self-care (01) | DRG 871 ==
LOC: ERS 21:07 → 2SW 23:20 → OBSVTOIN 12-08 06:46 → 2NO 12-08 09:03
PROVIDERS: ADMIT Internal Medicine; ATTEND Internal Medicine
DX: A41.9 Sepsis, unspecified organism (principal); K75.0 Abscess of liver; E87.1 Hypo-osmolality and hyponatremia; A04.72 Enterocolitis due to Clostridium difficile, not specified as recurrent; R65.20 Severe sepsis without septic shock; I44.1 Atrioventricular block, second degree; I48.0 Paroxysmal atrial fibrillation; E87.6 Hypokalemia; I10 Essential (primary) hypertension; F17.210 Nicotine dependence, cigarettes, uncomplicated; D69.6 Thrombocytopenia, unspecified; K21.9 Gastro-esophageal reflux disease without esophagitis; B00.1 Herpesviral vesicular dermatitis; E66.9 Obesity, unspecified; Z68.34 Body mass index [BMI] 34.0-34.9, adult; E78.5 Hyperlipidemia, unspecified; F41.9 Anxiety disorder, unspecified; R79.89 Other specified abnormal findings of blood chemistry; Z90.49 Acquired absence of other specified parts of digestive tract; Z88.2 Allergy status to sulfonamides
CPT/HCPCS: 36415; 74178; 80053; 82565; 83605; 83690; 85025; 87040; 87045; 87046; 87081; 87086; 87324; 87449; 87493; 87899; 93005; 96365; A4216; J2185; J7050